=== PATIENT | male | born 1995 | race Caucasian/White ===

== ENCOUNTER 2018-11-07 11:41 | Emergency (ER) | payer OTHER ==
[~2018-11-07] VITALS: Ht 175.3 cm; Wt 60.6 kg
[2018-11-07 11:45] VITALS: Ht 175.3 cm; Wt 60.6 kg
[2018-11-07] MEDS ORDERED: IBUP-1542 PO (12:30)
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
[2018-11-07 12:48] VITALS: BP 108/75; PULSE 79; RESP 18
== END 2018-11-07 12:49 | disposition home or self-care (01) ==
LOC: FTE 11:41
DX: M54.6 Pain in thoracic spine (principal); R51 Headache
CPT/HCPCS: 99282